=== PATIENT | male | born 1945 | race Caucasian/White ===

== ENCOUNTER 2019-09-30 13:09 | Inpatient (IN) | payer MEDICARE, SELFPAY ==
[2019-09-30] VITALS (29 sets, daily range): BP systolic 123–165; BP diastolic 53–81; PULSE 75–134; RESP 16–32; TEMP 36.7–37.3; O2SAT 85–100; BMI 26.6
--- NOTE | 2019-09-30 13:12 | XRR_ITS ---
PROCEDURE INFORMATION: Exam: XR Chest, 1 View Exam date and time: 09/30/2019 1:49 PM Age: 74 years old Clinical indication: Dyspnea TECHNIQUE: Imaging protocol: XR of the chest Views: 1 view. COMPARISON: CR Chest 1 [place] [id number] 08/07/2018 12:22 AM FINDINGS: Lungs: Emphysematous change and interstitial prominence. Near complete interval resolution of previously visualized left basilar airspace disease, with small residual left pleural effusion. Heart/Mediastinum: Cardiac silhouette upper limits of normal in size. Vasculature: Calcification of the thoracic aorta. Bones/joints: Degenerative change. XR/XR chest 1V portable [id number] IMPRESSION: 1. Emphysematous change and interstitial prominence. 2. Near complete interval resolution of previously visualized left basilar airspace disease, with small residual left pleural effusion.
--- NOTE | 2019-09-30 13:13 | ECG_ITS ---
Measurements Intervals [place] Rate: 133 P: 78 AK: 139 QRS: -47 QRSD: 78 T: 64 QT: 305 QTc: 454 SINUS TACHYCARDIA LEFT ANTERIOR FASCICULAR BLOCK [QRS AXIS <= -45, QR IN I, RS IN II] NONSPECIFIC T-WAVE ABNORMALITY Compared to ECG 08/07/2018 00:32:35 Left anterior fascicular block now present T-wave abnormality now present Electronically Signed On 10-01-2019 19:58:35 CDT by Pauline Ashley M.D. [id number]
--- NOTE | 2019-09-30 13:15 | W.ED.SOB ---
HPI - SOB/Dyspnea General: Chief Complaint: Shortness of Breath/Dyspnea Stated Complaint: SOB Time Seen by Provider: 09/30/19 13:12 History of Present Illness: HPI Narrative: Patient reports she's been increasingly short of breath for the past 2 days. There is no relief from home O2 or home nebulizers. MD elicited complaint: shortness of breath Pertinent past history: COPD Onset (ago): day(s) Severity: severe Exacerbating factors: lying flat and exertion Relieving factors: nothing Known history of: COPD Review of Systems General: Reports: 10 or more systems reviewed and unremarkable except in HPI and below Resp: Reports: dyspnea and wheezing [facility] ED PFSH: Social History Smoking and tobacco status: current some day smoker Physical Exam Const: COMMON NORMALS: alert GENERAL APPEARANCE: in distress and ill appearing Neck/C-Spine: GENERAL: Yes JVD Resp: EFFORT & INSPECTION: Yes labored, Yes uses accessory muscles, Yes paradoxical thoraco-abdominal movements and Yes audible wheezes Cardio: RATE: tachycardic Extremity: COMMON NORMALS: full ROM and no pedal edema Neuro: SENSORIUM/ORIENTATION: Yes alert Course Vital Signs: Vital signs: Vital Signs Temperature 99.1 F 09/30/19 13:15 Pulse Rate 130 H 09/30/19 13:37 Respiratory Rate 24 H 09/30/19 13:15 Blood Pressure 142/64 09/30/19 13:15 Pulse Oximetry 97 09/30/19 13:37 MDM - SOB/Dyspnea Lab Data: Labs: Lab Results 09/30/19 09/30/19 09/30/19 Range/Units 12:13 12:30 12:30 WBC 10.3 H (4.0-10.0) 10^3/ uL RBC 3.78 L (4.1-5.3) 10^6/u L Hgb 10.4 L (11.7-16.6) g/dL Hct 35.3 L (42.0-52.0) % MCV 93.4 (80-94) fL MCH 27.5 L (28.0-34.0) pg MCHC 29.5 L (30.0-36.0) g/dL RDW 13.1 (12.1-15.1) % Plt Count 472 H (130-400) 10^3/c mm MPV 9.6 (7.4-10.4) fL Neut % (Auto) 80.3 % Lymph % (Auto) 9.0 % [place] % (Auto) 9.7 % Eos % (Auto) 0.1 % Baso % (Auto) 0.3 % Neut # (Auto) 8.3 H (1.8-7.7) 10^3/u L Lymph # (Auto) 0.9 (0.8-4.8) 10^3/u L [place] # (Auto) 1.0 H (0.2-0.9) 10^3/u L Eos # (Auto) 0.0 (0.0-0.8) 10^3/u L Baso # (Auto) 0.0 (0.0-0.1) 10^3/u L Nucleated RBC % (a uto) 0 % Nucleated RBCs # 0.0 /100WBC Specimen Type Arterial Sample Site Radial, left ABG pH 7.42 (7.35-7.45) ABG pCO2 49.0 H (35-45) mmHg ABG pO2 78.3 L (80.0-100.0) mmH g ABG HCO3 31.7 H (22-26) mmol/L ABG Base Excess 6.4 H (-2.0-2.0) mmol/ L Bhavik Test Pos Hematocrit 30.5 L (42-52) % O2 Delivery Device Bipap FiO2 28.0 % Quarry Equipment Operator ID [id number] Sodium 142 (136-145) mmol/L Potassium 4.4 (3.5-5.1) mmol/L Chloride 98 (98-107) mmol/L Carbon Dioxide 34 H (22-29) mmol/L Anion Gap 14.4 (5-19) BUN 16 (8-23) mg/dL Creatinine 1.2 (0.7-1.2) mg/dL Glucose 110 (65-115) mg/dL Calculated Osmolal ity 291 (285-295) mOsm/k g Lactic Acid (0.5-2.2) mmol/L Calcium 9.4 (8.5-10.5) mg/dL Total Bilirubin 0.2 (0.15-1.2) mg/dL AST 26 (0-40) U/L ALT 28 (0-41) U/L Alkaline Phosphata se 131 H (40-130) IU/L Troponin T Baselin e (0-15) ng/mL NT-Pro-B Natriuret Pep 716 H (0-450) pg/mL Total Protein 7.1 (6.6-8.7) g/dL Albumin 4.1 (3.5-5.2) g/dL Globulin 3.0 (1.3-4.6) g/dL Influenza Type A A g (Negative) Influenza Type B A g (Negative) 09/30/19 09/30/19 09/30/19 Range/Units 12:30 13:20 13:24 WBC (4.0-10.0) 10^3/ uL RBC (4.1-5.3) 10^6/u L Hgb (11.7-16.6) g/dL Hct (42.0-52.0) % MCV (80-94) fL MCH (28.0-34.0) pg MCHC (30.0-36.0) g/dL RDW (12.1-15.1) % Plt Count (130-400) 10^3/c mm MPV (7.4-10.4) fL Neut % (Auto) % Lymph % (Auto) % [place] % (Auto) % Eos % (Auto) % Baso % (Auto) % Neut # (Auto) (1.8-7.7) 10^3/u L Lymph # (Auto) (0.8-4.8) 10^3/u L [place] # (Auto) (0.2-0.9) 10^3/u L Eos # (Auto) (0.0-0.8) 10^3/u L Baso # (Auto) (0.0-0.1) 10^3/u L Nucleated RBC % (a uto) % Nucleated RBCs # /100WBC Specimen Type Sample Site ABG pH (7.35-7.45) ABG pCO2 (35-45) mmHg ABG pO2 (80.0-100.0) mmH g ABG HCO3 (22-26) mmol/L ABG Base Excess (-2.0-2.0) mmol/ L Bhavik Test Hematocrit (42-52) % O2 Delivery Device FiO2 % Quarry Equipment Operator ID Sodium (136-145) mmol/L Potassium (3.5-5.1) mmol/L Chloride (98-107) mmol/L Carbon Dioxide (22-29) mmol/L Anion Gap (5-19) BUN (8-23) mg/dL Creatinine (0.7-1.2) mg/dL Glucose (65-115) mg/dL Calculated Osmolal ity (285-295) mOsm/k g Lactic Acid 2.2 (0.5-2.2) mmol/L Calcium (8.5-10.5) mg/dL Total Bilirubin (0.15-1.2) mg/dL AST (0-40) U/L ALT (0-41) U/L Alkaline Phosphata se (40-130) IU/L Troponin T Baselin e 76 H (0-15) ng/mL NT-Pro-B Natriuret Pep (0-450) pg/mL Total Protein (6.6-8.7) g/dL Albumin (3.5-5.2) g/dL Globulin (1.3-4.6) g/dL Influenza Type A A g Negative (Negative) Influenza Type B A g Negative (Negative) Discharge Plan Discharge Patient Disposition: Admitted As Inpatient Clinical Impression: Acute exacerbation of chronic obstructive airways disease, Acute respiratory distress Condition: Fair Coding Level of Care Code ED Tapper Balance Wheel Screw Hole for Chg Fwd Exam Detailed
[2019-09-30 13:23] LABS: Basophils % 0.3 %; Eosinophils % 0.1 %; Hematocrit 35.3 % (42.0-52.0); Hemoglobin 10.4 g/dL (11.7-16.6); Lymphocytes # 0.9 10^3/uL (0.8-4.8); Mean Corpuscular HGB Conc 29.5 g/dL (30.0-36.0); Mean Corpuscular Hemoglobin 27.5 pg (28.0-34.0); Mean Corpuscular Volume 93.4 fL (80-94); Mean Platelet Volume 9.6 fL (7.4-10.4); Monocytes % 9.7 %; Neutrophils # 8.3 10^3/uL (1.8-7.7); Neutrophils % 80.3 %; Nucleated Red Blood Cells % 0 %; Platelet Count 472 10^3/cmm (130-400); Red Blood Count 3.78 10^6/uL (4.1-5.3); Red Cell Distribution Width 13.1 % (12.1-15.1); White Blood Count 10.3 10^3/uL (4.0-10.0)
[2019-09-30] MEDS: sodium chloride 0.9% 500 ML 999 ML IV (13:40)
--- NOTE | 2019-09-30 13:43 | PC.RESP ---
Patient arrived to ED on EMS CPAP. Placed patient on bipap upon arrival. Dr. Rivas in room and aware.
[2019-09-30 13:50] LABS: Lactic Sepsis W/Reflex 2.2 mmol/L (0.5-2.2)
[2019-09-30 13:53] LABS: Troponin(5th) Baseline 76 ng/mL (0-15)
[2019-09-30 14:02] LABS: Alanine Aminotransferase 28 U/L (0-41); Albumin Level 4.1 g/dL (3.5-5.2); Alkaline Phosphatase 131 IU/L (40-130); Anion Gap 14.4 (5-19); Aspartate Amino Transferase 26 U/L (0-40); Blood Urea Nitrogen 16 mg/dL (8-23); Calcium 9.4 mg/dL (8.5-10.5); Carbon Dioxide 34 mmol/L (22-29); Chloride 98 mmol/L (98-107); Creatinine Clr Calc Pharmacy 53.9197; Glucose 110 mg/dL (65-115); NT Pro B Type Natriuretic Pept 716 pg/mL (0-450); Osmolality Calculated 291 mOsm/kg (285-295); Potassium 4.4 mmol/L (3.5-5.1); Sodium 142 mmol/L (136-145); Total Bilirubin 0.2 mg/dL (0.15-1.2); Total Protein 7.1 g/dL (6.6-8.7)
[2019-09-30 14:20] LABS: Influenza A by IFA Negative (Negative); Influenza B by IFA Negative (Negative)
[2019-09-30 14:25] LABS: ABG PH Result 7.42 (7.35-7.45); Arterial Blood Gas Hematocrit 30.5 % (42-52); Base Excess ABG 6.4 mmol/L (-2.0-2.0); Blood Gas Allen Test Pos; Blood Gas Sample Site Radial, left; Blood Gas Sample Type Arterial; HCO3 ABG 31.7 mmol/L (22-26); Oxygen Device BIPAP; PO2 ABG 78.3 mmHg (80.0-100.0)
--- NOTE | 2019-09-30 15:13 | ECG_ITS ---
Measurements Intervals [place] Rate: 110 P: 69 IA: 145 QRS: -26 QRSD: 91 T: 33 QT: 353 QTc: 478 SINUS TACHYCARDIA BORDERLINE LEFT AXIS DEVIATION [QRS AXIS < -20] Compared to ECG 08/07/2018 00:32:35 No significant changes Electronically Signed On 10-01-2019 20:25:47 CDT by Pauline Ashley M.D. [id number]
[2019-09-30 15:15] LABS: Reflex Lactate Order REFLEX LACTIC ORDERD
--- NOTE | 2019-09-30 15:17 | P.HP_ITS ---
Providers/Chief Complaint Chief Complaint: SOB History of Present Illness Abundio Reyes is a 74 year old male that presents to the emergency department with gradual increasing shortness of breath over the last 3 days or so. He denies any fever. He has had a cough. He denies any hemoptysis. He reports he has underlying COPD and normally is on about 4 L of oxygen per nasal cannula. H e reports he feels much better on the BiPAP, and wishes he had one at home. He denies any chest pain, any discomfort with inspiration, any leg pain. He denies any exposure to anybody with COVID. He has had no recent travel. Review of Systems General: Reports: 10 or more systems reviewed and unremarkable except in HPI and below Const: Denies: fever(s) or chills Eyes: Denies: change in vision ENMT: Denies: throat pain Card: Reports: dyspnea on exertion; Denies: chest pain Resp: Reports: dyspnea and non-productive cough GI: Denies: abdominal pain : Denies: flank pain Musc: Denies: neck pain Skin/Breast: Denies: rash Neuro: Denies: headache(s) Psych: Reports: anxiety Endo: Denies: polyuria Aamir/Lymph: Denies: easy bruising All/Imm: Denies: urticaria Medications/Allergies Home Medications Medication Instructions Recorded Confirmed Last Taken Type alprazolam 0.5 mg PO Q4H PRN 09/30/19 09/30/19 Unknown History citalopram 10 mg PO DAILY 09/30/19 09/30/19 Unknown History docusate sodium [DOK] 100 mg PO BID 09/30/19 09/30/19 Unknown History gabapentin See Rx Instructions .ROUTE .COMPLEX 09/30/19 09/30/19 Unknown History guaifenesin [Mucinex] 600 mg PO BID 09/30/19 09/30/19 Unknown History ipratropium-albuterol 3 ml INHALATION TID 09/30/19 09/30/19 Unknown History meloxicam 15 mg PO DAILY PRN 09/30/19 09/30/19 Unknown History Allergies Allergy/AdvReac Type Severity Reaction Status Date / Time No Known Allergies Allergy Verified 09/30/19 13:17 PFSH Acute PFSH: Medical History (Updated 09/30/19 @ 15:32 by Jignesh Valadez MD) Anemia Anxiety BPH (benign prostatic hyperplasia) Chronic pain COPD (chronic obstructive pulmonary disease) DJD (degenerative joint disease) GERD (gastroesophageal reflux disease) Hypertension Urinary retention Family History (Updated 09/30/19 @ 15:20 by Jignesh Valadez MD) Other Cancer Social History (Updated 09/30/19 @ 15:20 by Jignesh Valadez MD) Smoking and tobacco status: current some day smoker Alcohol intake: never Substance/Drug Use: never Vitals/I&O/Wt Last Vital Signs Temp 99.1 F 09/30/19 13:15 Pulse 130 H 09/30/19 13:37 Resp 24 H 09/30/19 13:15 BP 142/64 09/30/19 13:15 Pulse Ox 97 09/30/19 13:37 Weight last 48 hrs Weight 79.379 kg Physical Exam Narrative: EXAM NARRATIVE: General exam demonstrates an elderly white male, pleasant and conversant HEENT: BiPAP is noted. Head is atraumatic. Pupils equally round. Neck is supple no lymphadenopathy or thyromegaly Cardiovascular slight tachycardia, no murmur Lungs no wheezes heard. Diminished breath sounds are noted bilaterally. Abdomen is soft with positive bowel sounds, no obvious organomegaly. Cruz is noted Extremities no cyanosis clubbing or edema, cap refill brisk Skin no rash Neuro no focal deficits Data : 09/30/19 12:30 09/30/19 12:30 Micro: Microbiology 09/30/19 13:25 Blood Culture - Preliminary Blood SPECIMEN COLLECTED 09/30/19 13:24 Blood Culture - Preliminary Blood SPECIMEN COLLECTED Other data: EKG demonstrates sinus tachycardia, left axis deviation, quite a bit of pulmonary artifact Chest x-ray demonstrates blunting left costophrenic angle which appears old. COPD, calcific aorta ABG demonstrated a pH of 7.42, PCO2 49, PO2 78 LFTs are largely normal BNP 716 Troponin baseline 76 Influenza swabs negative Urinalysis pending A&P Assessment and plan (1) Acute exacerbation of chronic obstructive airways disease: BiPAP started in the emergency department. Discontinue if able IV steroids given in the emergency department. At this point will transition to prednisone 40 mg a day to try to limit dose. Doubt COVID positive but hopefully will not need continued IV steroids. COVID testing performed and pending Doxycycline 100 mg twice daily Combivent 1 puff every 4 hours scheduled. Nebulized for breakthrough but will try to limit secondary to COVID testing Status: Acute (2) Respiratory failure: Hypercarbic Has element of chronic hypercarbic respiratory failure as well. Patient asking if he qualifies for BiPAP. This will need to be explored tomorrow. Status: Acute (3) Anemia: Anemia panel, fecal occult blood Placed on Protonix Status: Acute Additional A&P Information Elevated troponin, suspect type II Elevated BNP, no clinical evidence on exam of heart failure History of anxiety/depression, continue Celexa History of hypertension History of GERD. Start Protonix DJD Chronic pain BPH and according to the patient an indwelling Cruz for the last 5 to 6 months. Check urinalysis. Lovenox for DVT prophylaxis Full code Attestations Medical Necessity Statement*: Will need greater than 2 midnight stay for treatment and evaluation of COPD exacerbation requiring BiPAP. Time Spent in Patient Care: Greater than 35 minutes Coding Level of Care Code Acute Branch Credit Counselor for [facility] [place] Diagnoses Acute exacerbation of chronic obstructive airways disease J44.1 Respiratory failure J96.90 Anemia D64.9
[2019-09-30 15:24] LABS: Troponin 5 2HR 66.42 ng/mL (0-15)
[2019-09-30 15:28] LABS: Glucose Urine UA Norm (Normal); Ketones Urine Negative (Negative); Protein Urine Neg (Negative); Specific Gravity, Urine 1.005 (1.005-1.030); Urine Appearance Clear (CLEAR); Urine Color Yellow (Yellow); pH Urine 5 (5-7)
[2019-09-30 15:29] LABS: Bilirubin Urine Neg (NEGATIVE); Blood Urine 2+ (Negative); Leukocyte Esterase Urine Negative (Negative); Nitrate Urine Positive (Negative); Urobilinogen Urine Norm (Negative)
[2019-09-30 15:36] LABS: Bacteria Urine 2+; Mucus Urine 1+; RBC Urine 0-4 /hpf (0-2); Squamous Epithelial Cell Urine 0-4 (0-5); WBC Urine 0-4 /hpf (0-5)
[2019-09-30 15:37] LABS: Add Urine Culture? Yes
[2019-09-30 15:48] LABS: Lactic Acid level (Lactate) 1.9 mmol/L (0.5-2.2)
[2019-09-30 18:46] LABS: Ferritin 663 ng/mL (30-400); Iron 18 ug/dL (59-158); Percent Saturation 8.7 % (20-50); Total Iron Binding Capacity 206 mcg/dl; Unsaturated Iron Binding 188 ug/dL (112-347); Vitamin B12 238 pg/mL (232-1245)
[2019-09-30 18:48] LABS: Folate Level 4.2 ng/mL (4.5-32.2)
--- NOTE | 2019-09-30 19:13 | ECG_ITS ---
Measurements Intervals [place] Rate: 77 P: 72 MD: 155 QRS: -21 QRSD: 90 T: 16 QT: 402 QTc: 458 SINUS RHYTHM BORDERLINE LEFT AXIS DEVIATION [QRS AXIS < -20] Compared to ECG 08/07/2018 00:32:35 Sinus tachycardia no longer present Electronically Signed On 10-01-2019 20:18:29 CDT by Pauline Ashley M.D. [id number]
[2019-09-30] MEDS: TRAMadol 50 mg Tablet PO ×2 (19:39→21:35)
[2019-09-30] MEDS: enoxaparin 40 mg/0.4 mL Syringe SUBCUT (19:39)
[2019-09-30] MEDS: doxycycline 100 mg Tablet PO (19:39)
[2019-09-30] MEDS: ALPRAZolam 0.5 mg Tablet PO (19:40)
[2019-09-30] MEDS: gabapentin 300 mg Capsule PO (19:40)
[2019-09-30] MEDS: acetaminophen 325 mg Tablet 650 MG PO (19:40)
[2019-09-30] MEDS: morphine 4 mg/mL SDV 1 mL 2 MG IVP (20:10)
--- NOTE | 2019-09-30 21:01 | PC.NURSE ---
Pt continues to c/o pain in his legs and back. Dr Resendiz has been contacted twice via telephone at approx. 1915 and again at 2014. Pt was given previously ordered xanax (home med), gabapentin (home med), and tylenol. After the first phone call, pt was also given tramadol (50 mg, pt states he takes this at home, but it is not in his home med list). After second call, pt was given 2 mg IVP morphine. Pt states he needs more tramadol. Pt is diaphoretic and not able to sit still because of pain and not being able to breathe . RT was consulted and pt was given inhaled medicines as well as put on bipap. Pt requested nurse myles Resendiz again and ask for more tramadol or more pain medicine.
[2019-10-01] VITALS (39 sets, daily range): BP systolic 104–143; BP diastolic 43–80; PULSE 70–106; RESP 13–29; TEMP 36.4–37; O2SAT 90–100
[2019-10-01] MEDS: TRAMadol 50 mg Tablet PO ×3 (03:47→14:31)
[2019-10-01 05:05] LABS: Hematocrit 30.8 % (42.0-52.0); Hemoglobin 9.1 g/dL (11.7-16.6); Lymphocytes # 0.3 10^3/uL (0.8-4.8); Lymphocytes % 4.5 %; Mean Corpuscular HGB Conc 29.5 g/dL (30.0-36.0); Mean Corpuscular Hemoglobin 27.1 pg (28.0-34.0); Mean Corpuscular Volume 91.7 fL (80-94); Mean Platelet Volume 9.9 fL (7.4-10.4); Monocytes # 0.3 10^3/uL (0.2-0.9); Monocytes % 3.8 %; Neutrophils # 6.6 10^3/uL (1.8-7.7); Neutrophils % 91.3 %; Nucleated Red Blood Cells % 0 %; Platelet Count 360 10^3/cmm (130-400); Red Blood Count 3.36 10^6/uL (4.1-5.3); White Blood Count 7.3 10^3/uL (4.0-10.0)
[2019-10-01 05:27] LABS: Anion Gap 16.2 (5-19); Blood Urea Nitrogen 25 mg/dL (8-23); Calcium 10.1 mg/dL (8.5-10.5); Carbon Dioxide 30 mmol/L (22-29); Chloride 101 mmol/L (98-107); Glucose 136 mg/dL (65-115); Osmolality Calculated 295 mOsm/kg (285-295); Potassium 4.2 mmol/L (3.5-5.1); Sodium 143 mmol/L (136-145)
[2019-10-01] MEDS: gabapentin 300 mg Capsule PO ×2 (08:07→17:44)
[2019-10-01] MEDS: doxycycline 100 mg Tablet PO ×2 (08:07→17:44)
[2019-10-01] MEDS: predniSONE 20 mg Tablet 40 MG PO (08:07)
[2019-10-01] MEDS: ALPRAZolam 0.5 mg Tablet PO ×2 (08:07→14:31)
[2019-10-01] MEDS: citalopram 20 mg Tablet 10 MG PO (08:08)
[2019-10-01] MEDS: pantoprazole DR 40 mg Tablet PO (08:08)
[2019-10-01] MEDS: acetaminophen 325 mg Tablet 650 MG PO (08:08)
--- NOTE | 2019-10-01 10:58 | P.PN_ITS ---
Subjective Subjective: Interval history: He reports that he is feeling significantly better compared to admission. He reports that at home he uses 3-1/2-4 L of oxygen by nasal cannula continuously. He says that he has nebulizer at home has not been working. Vitals/I&O/Wt Last Vital Signs Temp 98.0 F 09/30/19 18:00 Pulse 98 10/01/19 08:18 Resp 22 H 10/01/19 08:14 BP 118/62 10/01/19 06:00 Pulse Ox 95 10/01/19 08:14 09/30/19 10/01/19 10/01/19 22:59 06:59 14:59 Intake Total 500 / 500 200 / 700 Output Total 450 / 450 800 / 1250 Balance 50 / 50 -600 / -550 Weight last 48 hrs Weight 79.379 kg Physical Exam Const: COMMON NORMALS: no acute distress and patient oriented x3 HENMT: COMMON NORMALS: oropharynx normal Neck/C-Spine: COMMON NORMALS: no JVD Resp: COMMON NORMALS: normal respiratory effort AUSCULTATION: wheezes throughout Cardio: COMMON NORMALS: no JVD, regular rhythm, S1 normal heart sound present, S2 normal heart sound present and No murmurs present (Cardio) RHYTHM: regular rhythm HEART SOUNDS: S1 normal heart sound present and S2 normal heart sound present GI: COMMON NORMALS: Normal to inspection, nondistended, normoactive bowel sounds present, Soft to palpation and non-tender PALPATION: Yes Soft to palpation Extremity: COMMON NORMALS: no joint enlargement and no pedal edema OTHER: Having some tremor in his bilateral lower extremities, intermittent jerky movements which he states are chronic with his restless leg syndrome. Neuro: COMMON NORMALS: patient oriented x3 and moves all extremities Skin: COMMON NORMALS: no rashes or lesions noted GENERAL SKIN EXAM: no rashes or lesions noted Data : 10/01/19 04:40 10/01/19 04:40 Micro: Microbiology 09/30/19 13:25 Blood Culture - Preliminary Blood SPECIMEN COLLECTED 09/30/19 13:24 Blood Culture - Preliminary Blood SPECIMEN COLLECTED A&P Assessment and plan (1) Respiratory failure: He is overall improving, feeling better subjectively, although still has bilateral wheezing on exam. Yesterday was switched over to prednisone. For now since he is feeling better we will continue. Appears to be approaching his home oxygen requirement which she states is 3.5-4 L by nasal cannula. COVID-19 results pending. Status: Acute (2) Acute exacerbation of chronic obstructive airways disease: As above. Continue breathing treatments. Pulmonary toilet. Appreciate discharge planning assistance with arrangements for service or replacement of his nebulizer. Status: Acute Additional A&P Information Restless leg syndrome: It is not entirely clear what he takes. He states that he takes as of tramadol 50 mg twice a day, although last recorded prescription o n contact with pharmacy is reported to have been back in July 2018. His nurse will try to reach out to PCP office to see what they have on record there. Anemia: Pending fecal occult blood test. Continue Protonix. Elevated troponin: Suspected type II AR, demand ischemia Elevated BNP: Does not appear to be in failure History anxiety/depression, continue Celexa History of HTN History of GERD DJD Chronic pain BPH: Reportedly chronic Cruz catheter over the last 5-6 months. UA not suggestive of UTI. Attestations Medical Necessity Statement*: Continue admission for assessment management of COPD exacerbation. Coding Level of Care Code Acute Residence Life Coordinator for [facility] Diagnoses Respiratory failure J96.90 Acute exacerbation of chronic obstructive airways disease J44.1
--- NOTE | 2019-10-01 12:01 | PC.NURSE ---
PATIENT HAD A ROUGH NIGHT HIS LEGS TWITCH AND VIBRATE NEARLY CONSTANTLY. HE STATES HE TAKES TRAMADOL 100MG AT LEAST 2X A DAY WITH AN EXTRA DOSE OF 50 TO 100 IF NEEDED. HE CLAIMS ITS THE ONLY THING THAT HELPS THE SHAKE. INCLUDING REQUIP, OXY, AND ZANAX. I CALLED [facility] AND HIS LAST REFILL WAS FROM 2019 THROUGH AN EMERGENCY ROOM ORDER. DR VELASCO PRESCRIBED MANY MEDS BUT HE IS NOT HIS PCP DR LIVINGSTON IS AND I AM AWAITING A MED LIST FROM THEM. MELOXICAM 15 MGIS ON A RECENT REFILL IS MUCINEX, GABAPENTIN 300 BID, INHALERS , CITALOPRAM 10MG, AND ZANAX .5 Q4HRS PRN.
--- NOTE | 2019-10-01 14:25 | PC.NURSE ---
dr enciso's office contacted to fax his med list to the [facility]. no fax has arrived in 2 hrs. patient has been resting well. covid negative.
--- NOTE | 2019-10-01 14:45 | PC.NURSE ---
THIS PATIENT CARES FOR HIS WHEELCHAIR BOUND WITH MS. HE WAS HAVING TROUBLE VOIDING SOME MONTHS AGO AND ENDED UP WITH A CHRONIC CARTER. HE SAID HE JUST WANTED TO BE PUT ON FLOMAX BUT DUE TO COVID HE DID NOT GET HIS SCOPE OR FLOMAX PERSCRIPTION THEY JUST SENT THE HOME HEALTH NURSES TO PUT IN HIS CARTER AND CHANGE IT OUT MONTHLY. PATIENT CLAIMS HIS HOME NEBULIZER IS NOT WORKING PROPERLY , HE HAS HAD IT FOR 6 YRS. IT NEEDS TO BE REPLACED PROBABLY, IT MAY EVEN BE CLOGGED AND UNSTERILE. THE DR SAID HE WOULD ARRANGE FOR IT TO BE LOOKED INTO.
[2019-10-01] MEDS: enoxaparin 40 mg/0.4 mL Syringe SUBCUT (17:44)
[2019-10-02] VITALS (24 sets, daily range): BP systolic 115–147; BP diastolic 52–69; PULSE 61–102; RESP 14–24; TEMP 36.4–36.6; O2SAT 95–100
[2019-10-02 05:37] LABS: Basophils % 0.1 %; Eosinophils % 0.1 %; Hematocrit 33.7 % (42.0-52.0); Hemoglobin 9.9 g/dL (11.7-16.6); Lymphocytes # 0.7 10^3/uL (0.8-4.8); Lymphocytes % 7.8 %; Mean Corpuscular HGB Conc 29.4 g/dL (30.0-36.0); Mean Corpuscular Volume 91.8 fL (80-94); Mean Platelet Volume 9.6 fL (7.4-10.4); Monocytes # 0.6 10^3/uL (0.2-0.9); Monocytes % 6.2 %; Neutrophils # 7.9 10^3/uL (1.8-7.7); Neutrophils % 84.8 %; Nucleated Red Blood Cells % 0 %; Platelet Count 392 10^3/cmm (130-400); Red Blood Count 3.67 10^6/uL (4.1-5.3); White Blood Count 9.3 10^3/uL (4.0-10.0)
[2019-10-02 05:55] LABS: Anion Gap 12.4 (5-19); Blood Urea Nitrogen 32 mg/dL (8-23); Carbon Dioxide 32 mmol/L (22-29); Chloride 100 mmol/L (98-107); Glucose 99 mg/dL (65-115); Osmolality Calculated 287 mOsm/kg (285-295); Potassium 4.4 mmol/L (3.5-5.1); Sodium 140 mmol/L (136-145)
[2019-10-02] MEDS: doxycycline 100 mg Tablet PO ×2 (09:00→18:07)
[2019-10-02] MEDS: predniSONE 20 mg Tablet 40 MG PO (09:00)
[2019-10-02] MEDS: pantoprazole DR 40 mg Tablet PO (09:00)
[2019-10-02] MEDS: citalopram 20 mg Tablet 10 MG PO (09:00)
[2019-10-02] MEDS: gabapentin 300 mg Capsule PO ×2 (09:00→18:07)
--- NOTE | 2019-10-02 11:30 | CTR_ITS ---
PROCEDURE INFORMATION: Exam: CT Abdomen And Pelvis With Contrast Exam date and time: 10/02/2019 12:31 PM Age: 74 years old Clinical indication: Other: Gluteal lesion; Abdominal pain TECHNIQUE: Imaging protocol: Computed tomography of the abdomen and pelvis with intravenous contrast. Radiation optimization: All CT scans at this facility use at least one of these dose optimization techniques: automated exposure control; mA and/or kV adjustment per patient size (includes targeted exams where dose is matched to clinical indication); or iterative reconstruction. Contrast material: OMNI 300; Contrast volume: 95 ml; Contrast route: IV; Other contrast: Oral, 25; COMPARISON: CT Chest/Abdomen/Pelvis w IV* 04/01/2018 8:11 AM RADIATION DOSE METRICS: Total DLP: 641.42 mGy-cm FINDINGS: Lungs: There is left lower lobe endobronchial opacification. Liver: Normal. No mass. Gallbladder and bile ducts: Gallstones are identified although there are no CT findings to suggest cholecystitis. No ductal dilation. Pancreas: Normal. No ductal dilation. Spleen: Normal. No splenomegaly. Adrenals: Normal. No mass. Kidneys and ureters: There are bilateral benign renal cysts. This includes a 2.8 cm mid posterior right cyst. No renal calcification or hydronephrosis. Stomach and bowel: Colonic diverticula are present although there are no CT findings to suggest diverticulitis. No bowel obstruction or wall thickening. Appendix: The appendix is visualized and appears normal. Intraperitoneal space: Unremarkable. No free air. No significant fluid collection. Vasculature: Unremarkable. No abdominal aortic aneurysm. Lymph nodes: Unremarkable. No enlarged lymph nodes. Bladder: There is a Cruz catheter in a decompressed bladder. Reproductive: Unremarkable as visualized. Bones/joints: Unremarkable. No acute fracture. Soft tissues: There is fat in the left inguinal canal. CT/CT abdomen pelvis w con* [id number] IMPRESSION: There are no acute concerning abnormalities. There are bilateral benign renal cysts. No follow-up imaging is recommended. Radiation Dose CTDIVOL = (mGy): DLP = 641.42 (mGy-cm)
[2019-10-02] MEDS: iohexol 300 mg/mL 50 mL Btl PO (12:32)
--- NOTE | 2019-10-02 14:10 | PM.CONSULT ---
Providers/Reason For Consult Consulting Physican/Specialty*: Dominic Palomares MD Reason for Consult*: Right perianal wound Attending Physician: Chalino Almendarez History of Present Illness History of Present Illness Chief Complaint: There is a spot on the bottom History of present illness: Abundio Reyes is a 74 year old male admitted on the hospitalist service for acute exacerbation of COPD and was supposed to be discharged home today and the nurse noticed some discharge on the bed sheets and she reported this to Dr. Almendarez that evaluated the patient and there was a concern about a right perianal ulcer and according to the patient has been going on for many years as he had a trauma about 40 years ago and ever since has been having this issue. Not clear if the patient had ever had a colonoscopy before At this point he denies any fevers chills nausea or vomiting and he reports that this issue has been going on for quite some Review of Systems General: Reports: 10 or more systems reviewed and unremarkable except in HPI and below Meds/Allergies Home Medications and Allergies Home Medications Medication Instructions Recorded Confirmed Last Taken Type alprazolam 0.5 mg PO Q4H PRN 09/30/19 09/30/19 Unknown History citalopram 10 mg PO DAILY 09/30/19 09/30/19 Unknown History docusate sodium [DOK] 100 mg PO BID 09/30/19 09/30/19 Unknown History guaifenesin [Mucinex] 600 mg PO BID 09/30/19 09/30/19 Unknown History ipratropium-albuterol 3 ml INHALATION TID 09/30/19 09/30/19 Unknown History meloxicam 15 mg PO DAILY PRN 09/30/19 09/30/19 Unknown History Mucinex 600 mg PO BID 10/01/19 10/01/19 Unknown History gabapentin 300 mg PO BID 10/01/19 10/01/19 Unknown History tramadol 50 mg PO Q4-5H PRN 10/01/19 10/01/19 Unknown History doxycycline monohydrate 100 mg PO BID 7 Days #14 tab 10/03/19 Unknown Rx ipratropium-albuterol [Combivent 1 puff INHALATION Q6H PRN #4 gm 10/03/19 Unknown Rx Respimat] pantoprazole 40 mg PO DAILY #30 tab 10/03/19 Unknown Rx prednisone 40 mg PO DAILY #21 tab 10/03/19 Unknown Rx tamsulosin [Flomax] 0.4 mg PO DAILY #30 cap 10/03/19 Unknown Rx Allergies Allergy/AdvReac Type Severity Reaction Status Date / Time No Known Allergies Allergy Verified 10/02/19 15:11 Current Medications Current Medications Generic Name Dose Route Start Last Admin Trade Name Freq PRN Reason Stop Dose Admin Acetaminophen 650 mg 09/30/19 14:53 10/01/19 08:08 Tylenol PO 650 mg Q6H PRN Administration Mild/Mod Pain Or Temp >/= 101 Albuterol/Ipratropium 1 puff 09/30/19 20:00 10/02/19 12:41 Combivent Respimat INHALATION 1 puff Q4H.RESPIRATORY KALEY Administration Alprazolam 0.5 mg 09/30/19 17:49 10/01/19 14:31 Xanax PO 0.5 mg Q4H PRN Administration Anxiety Citalopram Hydrobromide 10 mg 10/01/19 09:00 10/02/19 09:00 Celexa PO 10 mg DAILY KALEY Administration Doxycycline Monohydrate 100 mg 09/30/19 18:00 10/02/19 09:00 Vibramycin PO 100 mg BID KALEY Administration Protocol Enoxaparin Sodium 40 mg 09/30/19 18:30 10/01/19 17:44 Lovenox SUBCUT 40 mg Q24H KALEY Administration Gabapentin 300 mg 09/30/19 18:00 10/02/19 09:00 Neurontin PO 300 mg BID KALEY Administration Pantoprazole Sodium 40 mg 10/01/19 09:00 10/02/19 09:00 Protonix PO 40 mg DAILY KALEY Administration Prednisone 40 mg 10/01/19 09:00 10/02/19 09:00 Prednisone PO 40 mg DAILY KALEY Administration Fluticasone/Salmeterol 1 puff 10/01/19 08:30 10/02/19 09:37 Advair Diskus 250-50 INHALATION 1 puff BID.RESPIRATORY KALEY Administration Tramadol HCl 50 mg 09/30/19 19:31 10/01/19 14:31 Ultram PO 50 mg Q6H PRN Administration MODERATE PAIN PFSH Acute PFSH: Medical History (Updated 10/04/19 @ 00:00 by ) Anemia Anxiety BPH (benign prostatic hyperplasia) Chronic pain COPD (chronic obstructive pulmonary disease) DJD (degenerative joint disease) GERD (gastroesophageal reflux disease) Hypertension Urinary retention Family History Other Cancer Social History Smoking and tobacco status: current some day smoker Alcohol intake: never Vitals/I&O/Wt Last Vital Signs Temp 97.6 F 10/02/19 10:41 Pulse 102 H 10/02/19 12:43 Resp 18 10/02/19 12:42 BP 123/66 10/02/19 10:00 Pulse Ox 95 10/02/19 12:42 10/01/19 10/02/19 10/02/19 22:59 06:59 14:59 Intake Total 600 / 1150 360 / 360 Output Total 300 / 500 600 / 1100 Balance 300 / 650 -600 / 50 360 / 360 Physical Exam Narrative: EXAM NARRATIVE: Patient is conscious alert oriented X3 BMI 27 Head and neck examination PERRLA no masses no cervical lymphadenopathy no jaundice Cardiac examination audible S1-S2 no murmurs no gallops no arrhythmias Chest is clear bilateral,abscence of Rhonchi or wheezes,no surgical emphysema Abdomen nontender nondistended soft no organomegaly guarding or rigidity/no signs of peritonitis Right perianal ulcer measures about 4 x 5 cm with exposed underlying fat, examination is limited as patient have some discomfort. Data Micro: Micro: Microbiology 09/30/19 13:25 Blood Culture - Pr eliminary Blood NEGATIVE TO ANNE E 09/30/19 13:24 Blood Culture - Pr eliminary Blood NEGATIVE TO ANNE E A&P Assessment and plan (1) Ulcer of perianal area with fat layer exposed: After a limited history physical examination and reviewing the chart, I do recommend to obtain a CT scan of the abdomen and pelvis to include the concerning place on the perianal area. (I did review the CT scan images with my personal interpretation and there was no obvious masses or fistula) My clinical concern is likely that the patient has a perianal fistula but the ulcer is also concerning for a potential neoplastic change. In order for me to have a better evaluation patient likely will benefit from a colonoscopy or at least a flex sigmoidoscopy with examination under anesthesia which can be done as an outpatient. Thank you for consulting General surgery to partcipate in taking care of Mr Reyes. Status: Resolved Consult Attestations Medical Necessity Statement: Per hospitalist Time Spent in Patient Care: 16 - 35 minutes (>than 50% of time spent in counselling and/or direct pt care on unit). Coding Level of Care Code Acute Mortgage Loan Officer Originator for Carolina Mccordd Diagnoses Ulcer of perianal area with fat layer exposed L98.492
--- NOTE | 2019-10-02 15:10 | P.PN_ITS ---
Subjective Subjective: Interval history: This morning he became quite fatigued when trying to walk back from the restroom to his bed. Got to the point he was dizzy, despite having his nasal cannula on. Temporarily BiPAP was replaced. He has been really wanting to return home, however, discussed with him with significant deconditioning, chronic respiratory failure with chronic hypoxia requiring 3.5-4 L of oxygen, and currently with exacerbation of COPD, as well as physical deconditioning we would be well served with obtaining a PT evaluation, and potentially even consider placement to SNF prior to return home so he may undergo rehabilitation. He states will consider this plan, and for now is agreeable to stay for additional evaluation. This morning also noted to have a serosanguineous stain on the sheets after getting up to the restroom, and has stated that he on and off for the last 40 years has had a wound reopening on his sacrum, most of the time it opens only for couple days, and then stops draining. He says that the initial wound was about 40 years ago after falling off a roof across some shingles, and onto a saw horse. At that time he was assessed for the wound, although has not followed with anybody in about 30 years. Vitals/I&O/Wt Last Vital Signs Temp 97.6 F 10/02/19 10:41 Pulse 102 H 10/02/19 12:43 Resp 18 10/02/19 12:42 BP 123/66 10/02/19 10:00 Pulse Ox 95 10/02/19 12:42 10/02/19 10/02/19 10/02/19 06:59 14:59 22:59 Intake Total 360 / 360 Output Total 600 / 1100 Balance -600 / 50 360 / 360 Physical Exam Const: COMMON NORMALS: no acute distress and patient oriented x3 HENMT: COMMON NORMALS: oropharynx normal Neck/C-Spine: COMMON NORMALS: no JVD Resp: COMMON NORMALS: normal respiratory effort AUSCULTATION: diminished lung sounds (Better than yesterday) Cardio: COMMON NORMALS: no JVD, regular rhythm, S1 normal heart sound present, S2 normal heart sound present and No murmurs present (Cardio) RHYTHM: regular rhythm HEART SOUNDS: S1 normal heart sound present and S2 normal heart sound present GI: COMMON NORMALS: Normal to inspection, nondistended, normoactive bowel sounds present, Soft to palpation and non-tender PALPATION: Yes Soft to palpation Back/Pelvis: OTHER: intergluteal cleft 3cm ulceration/laceration with a fat globules protruding through the wound, with some mild degree of induration, minimal surrounding erythema, small amount of serosanguineous drainage Extremity: COMMON NORMALS: no joint enlargement and no pedal edema OTHER: No symptoms of restless legs today Neuro: COMMON NORMALS: patient oriented x3 and moves all extremities Skin: COMMON NORMALS: no rashes or lesions noted GENERAL SKIN EXAM: no rashes or lesions noted Data : 10/02/19 05:00 10/02/19 05:00 Micro: Microbiology 09/30/19 13:25 Blood Culture - Preliminary Blood NEGATIVE TO DATE 09/30/19 13:24 Blood Culture - Preliminary Blood NEGATIVE TO DATE A&P Assessment and plan (1) Respiratory failure: This has been slowly improving. His exam today is better, with resolution of wheezing, with improvement in air entry. He does get very easily fatigable, got very winded, and even dizzy when trying to walk back from the restroom despite having nasal cannula on. Appears he has still ongoing symptoms, as well as a high degree of deconditioning from the acute illness and hospitalization. He had recovered after short duration BiPAP, and has since been on his baseline oxygen flow. Still, with how deconditioned he is we requested PT assessment, and discussed with him even consideration that he should probably go to SNF first prior to returning home after some rehabilitation. He agreed to consider this option. Given still some temporary BiPAP support need, will for now continue inpatient care, as well as discharge arrangements. We will also request for overnight pulse oximetry for consideration of home BiPAP. Home oxygen requirement states is 3.5-4 L by nasal cannula. Cont PO steroid, antibiotic breathing treatments. COVID-19 results negative. Status: Acute (2) Acute exacerbation of chronic obstructive airways disease: As above. Continue breathing treatments. Pulmonary toilet. Appreciate discharge planning assistance with arrangements for service or replacement of his nebulizer. Status: Acute (3) Ulcer of perianal area with fat layer exposed: About several CM in size with some minimal induration, min erythema, min serosang drainage. CT AP ordered also with PO contrast due to concern of possible fistula. Appreciate surgery discussion with regards to also follow up for additional assessment for this potentially with endoscopy. Status: Acute Additional A&P Information Restless leg syndrome: Tramadol, gabapentin. Anemia: Pending fecal occult blood test. Continue Protonix. Elevated troponin: Suspected type II NV, demand ischemia Elevated BNP: Does not appear to be in failure History anxiety/depression, continue Celexa History of HTN History of GERD DJD Chronic pain BPH: Reportedly chronic Cruz catheter over the last 5-6 months. UA not suggestive of UTI. States that his catheter was initially placed after he started having difficulty urination after running out of tamsulosin prescription. He says that since then the catheter just remained in place, being exchanged on a monthly basis. Discussed with him we would restart him on tamsulosin, and in 1-2 weeks he should be able to follow-up with urology for consideration of voiding trial and liberation from Cruz. Attestations Medical Necessity Statement*: Continue admission for assessment and management of acute on chronic respiratory failure. Assessment of sacral wound, and di scharge arrangements. Coding Level of Care Code Acute Corporate Legal Secretary for Carolina Lutz Diagnoses Respiratory failure J96.90 Acute exacerbation of chronic obstructive airways disease J44.1 Ulcer of perianal area with fat layer exposed L98.492
[2019-10-02] MEDS: iohexol 300 mg/mL 100 mL Btl IV (17:15)
[2019-10-02] MEDS: enoxaparin 40 mg/0.4 mL Syringe SUBCUT (18:07)
[2019-10-02] MEDS: TRAMadol 50 mg Tablet PO (18:09)
[2019-10-02] MEDS: fixodent 39 gm Tube 1 APPLIC DENTAL (18:11)
--- NOTE | 2019-10-02 18:46 | PC.NURSE ---
PT DRESSING CHANGE WHEN ARRIVED ON FLOOR AT APPROXIMATELY 1830, DONE WITH HERMILA BYRNE FROM ICU, MEASUREMENTS ARE 1.5 CM X 0.8CM, CLEANSED WITH STERILE WATER AND COVERED WITH ABD. PT TOLERATED WELL.
--- NOTE | 2019-10-02 19:40 | PC.NURSE ---
transfer report called to Lisa. Patient taken via bed, wound cleansed and dressed at bedside with accepting nurse. Explained that patient reports he has has this wound on and off for 40 years and has been open this time for approximately one month.
[2019-10-03] VITALS (11 sets, daily range): BP systolic 132–145; BP diastolic 48–62; PULSE 68–85; RESP 17–24; TEMP 36.5–36.8; O2SAT 88–99
[2019-10-03 05:09] LABS: Basophils % 0.1 %; Hematocrit 33.2 % (42.0-52.0); Lymphocytes # 0.9 10^3/uL (0.8-4.8); Lymphocytes % 12.6 %; Mean Corpuscular HGB Conc 30.1 g/dL (30.0-36.0); Mean Corpuscular Hemoglobin 27.3 pg (28.0-34.0); Mean Corpuscular Volume 90.7 fL (80-94); Mean Platelet Volume 9.5 fL (7.4-10.4); Monocytes # 0.6 10^3/uL (0.2-0.9); Neutrophils # 5.5 10^3/uL (1.8-7.7); Neutrophils % 78.4 %; Nucleated Red Blood Cells % 0 %; Platelet Count 404 10^3/cmm (130-400); Red Blood Count 3.66 10^6/uL (4.1-5.3); Red Cell Distribution Width 12.8 % (12.1-15.1)
[2019-10-03 05:29] LABS: Anion Gap 12.5 (5-19); Blood Urea Nitrogen 31 mg/dL (8-23); Calcium 9.9 mg/dL (8.5-10.5); Carbon Dioxide 34 mmol/L (22-29); Chloride 97 mmol/L (98-107); Glucose 92 mg/dL (65-115); Osmolality Calculated 285 mOsm/kg (285-295); Potassium 4.5 mmol/L (3.5-5.1); Sodium 139 mmol/L (136-145)
[2019-10-03] MEDS: predniSONE 20 mg Tablet 40 MG PO (08:04)
[2019-10-03] MEDS: doxycycline 100 mg Tablet PO (08:04)
[2019-10-03] MEDS: pantoprazole DR 40 mg Tablet PO (08:05)
[2019-10-03] MEDS: citalopram 20 mg Tablet 10 MG PO (08:05)
[2019-10-03] MEDS: gabapentin 300 mg Capsule PO (08:05)
--- NOTE | 2019-10-03 13:34 | PM.DCS ---
Discharge Providers Date of Admission: 09/30/19 15:28 Date of Discharge: October 03, 2019 Attending Provider at Admission: Alessia Valadez MD Attending Provider at Discharge: Chalino Almendarez Diagnoses at Discharge Discharge Diagnosis (1) Respiratory failure: Status: Acute (2) Acute exacerbation of chronic obstructive airways disease: Status: Acute (3) Ulcer of perianal area with fat layer exposed: Status: Acute (4) Anemia: Status: Acute (5) Chronic indwelling Cruz catheter: Status: Acute (6) BPH (benign prostatic hyperplasia): Status: Acute Reason for Visit Reason for Visit: Reason For Visit: SOB Hospital Course Hospital Course: Pleasant gentleman with chronic respiratory failure, chronic hypoxia, at home previously had been on 2 L of oxygen by nasal cannula at night, COPD, smoking addiction, was admitted after he presented with shortness of breath, found to be in acute exacerbation of COPD, requiring BiPAP support, although not normally on BiPAP at home, started on IV steroid initially, then transition to oral treatment with prednisone, doxycycline for severe exacerbation, was treated with inhalers initially with Combivent while being tested for COVID-19. This was negative. His symptoms gradually improved. His oxygenation remained stable, although he continually requires oxygen during the day at this time. He overall is pleasant, responsive, somewhat hard of hearing, but it is difficult to tell how much of a grasp he has on his condition. He does try to state that his nebulizer has not been working at home, however, could not call it by name, describing it by gesturing. He also appears to have a chronic Cruz for the last 5-6 months which on questioning him states that it was placed and left in place after he ran out of Flomax prescription. On discharge he is given a prescription of Flomax, request is made that he be supplied with a leg bag, and for now maintain Cruz catheter for the next 1-2 weeks with subsequent follow-up with urology in office for weaning trial. While in the hospital also discovered to have an open wound slightly to the right of the superior gluteal cleft, with mild serosanguineous drainage, with globule of fat protruding, very mild surrounding induration, erythema, which on closer questioning he states has been coming back on and off for the last 40 years after he sustained a fall from a roof top hitting multiple rafters on the way, and then landing on his sawhorse. He says that most of the time it will open up for several days, and then reclosed. He says he has not seen anybody for it in about 30 years. He was assessed by CT abdomen pelvis to rule out abscess, and also due to concern for possible fistula given chronicity of the lesion. Currently says the wound has been open for several weeks. He was given instructions on preventing worsening/recurrence of the lesion, and wound care. He was assessed by surgery, who will also see him on outpatient side for additional evaluation to exclude fistulization. While in the hospital also noted to be anemic, although stool studies for immunochemical testing could not be obtained. Has had no outward bleeding. Was maintained on Protonix while taking prednisone, and hemoglobin remained stable. Please follow-up level, as well as additional outpatient work-up as needed with regards to this. Given his deconditioning, some ongoing hypoxia, as well as somewhat incomplete grasp of his medical conditions, arrangements were made, and multiple discussions had with regards to placement to long-term facility to allow for additional supervised recovery and rehabilitation, however, he is adamantly declining to discharge to long-term facility, insistent that he is going to leave the hospital today and return home. Due to this home health care is requested, and he has agreed with this. He states there will be someone with him there at all times. Please follow-up on the above as well as his chronic conditions. He is also encouraged to stop smoking, please continue to encourage and support cessation. Physical Exam Const: COMMON NORMALS: no acute distress and patient oriented x3 HENMT: COMMON NORMALS: oropharynx normal Neck/C-Spine: COMMON NORMALS: no JVD Resp: COMMON NORMALS: normal respiratory effort AUSCULTATION: diminished lung sounds (Better than yesterday) Cardio: COMMON NORMALS: no JVD, regular rhythm, S1 normal heart sound present, S2 normal heart sound present and No murmurs present (Cardio) RHYTHM: regular rhythm HEART SOUNDS: S1 normal heart sound present and S2 normal heart sound present GI: COMMON NORMALS: Normal to inspection, nondistended, normoactive bowel sounds present, Soft to palpation and non-tender PALPATION: Yes Soft to palpation Back/Pelvis: OTHER: intergluteal cleft 3cm ulceration/laceration with a fat globules protruding through the wound, with some mild degree of induration, minimal surrounding erythema, small amount of serosanguineous drainage Extremity: COMMON NORMALS: no joint enlargement and no pedal edema OTHER: No symptoms of restless legs today Neuro: COMMON NORMALS: patient oriented x3 and moves all extremities Skin: COMMON NORMALS: no rashes or lesions noted GENERAL SKIN EXAM: no rashes or lesions noted Discharge Data Data Completed and Pending: Completed Studies During Hospitalization Category Date Time Status CT abdomen pelvis w con* [id number] Rout ine Cat Scan 10/02/19 11:30 Completed XR chest 1V aaron ble [id number] Urgent Exams 09/30/19 13:12 Completed Pending at discharge Category Date Time Status Basic Metabolic P andrea AM LABS Lab 10/04/19 04:00 Ordered Blood Culture Sta t Lab 09/30/19 13:25 Results Complete Blood Co unt w/Auto AM LABS Lab 10/04/19 04:00 Ordered Immunochemical Fe myles OCB Routine Lab 09/30/19 17:49 Uncollected Sputum Culture an d Gram Stain Stat Lab 09/30/19 13:12 Uncollected Urine Culture Sta t Lab 09/30/19 13:16 Results Labs from last 24 hours 10/03/19 10/03/19 04:39 04:39 WBC 7.0 RBC 3.66 L Hgb 10.0 L Hct 33.2 L MCV 90.7 MCH 27.3 L MCHC 30.1 RDW 12.8 Plt Count 404 H MPV 9.5 Neut % (Auto) 78.4 Lymph % (Auto) 12.6 Cavalier % (Auto) 8.0 Eos % (Auto) 0.0 Baso % (Auto) 0.1 Neut # (Auto) 5.5 Lymph # (Auto) 0.9 Cavalier # (Auto) 0.6 Eos # (Auto) 0.0 Baso # (Auto) 0.0 Nucleated RBC % (a uto) 0 Nucleated RBCs # 0.0 Sodium 139 Potassium 4.5 Chloride 97 L Carbon Dioxide 34 H Anion Gap 12.5 BUN 31 H Creatinine 1.1 Glucose 92 Calculated Osmolal ity 285 Calcium 9.9 Vitals: Last Vital Signs Temp 97.7 F 10/03/19 11:18 Pulse 85 10/03/19 11:18 Resp 19 H 10/03/19 11:18 BP 144/62 10/03/19 11:18 Pulse Ox 97 10/03/19 11:18 Discharge Plan Discharge Patient Disposition: Home Health Service Condition: Fair Prescriptions: New doxycycline monohydrate 100 mg Tablet 100 mg PO BID 7 Days Qty: 14 RF: 0 Combivent Respimat 20-100 mcg/actuation Mist 1 puff inhalation Q6H PRN (Reason: Shortness Of Breath Or Wheezing) Qty: 4 RF: 0 prednisone 20 mg Tablet 40 mg PO DAILY Qty: 21 RF: 0 pantoprazole 40 mg Tablet,Delayed Release (Dr/Ec) 40 mg PO DAILY Qty: 30 RF: 0 Flomax 0.4 mg capsule 0.4 mg PO DAILY Qty: 30 RF: 0 Continued ipratropium-albuterol 0.5 mg-3 mg(2.5 mg base)/3 mL solution for nebulization 3 ml INHALATION TID RF: 0 citalopram 10 mg tablet 10 mg PO DAILY RF: 0 meloxicam 15 mg tablet 15 mg PO DAILY PRN (Reason: unknown) RF: 0 alprazolam 0.5 mg tablet 0.5 mg PO Q4H PRN (Reason: Anxiety) RF: 0 docusate sodium [DOK] 100 mg capsule 100 mg PO BID RF: 0 guaifenesin [Mucinex] 600 mg tablet extended release 12hr 600 mg PO BID RF: 0 gabapentin 300 mg capsule 300 mg PO BID RF: 0 Mucinex 600 mg PO BID RF: 0 tramadol 50 mg PO Q4-5H PRN (Reason: leg restlessness) RF: 0 Discontinued gabapentin 300 mg capsule See Rx Instructions .ROUTE .COMPLEX RF: 0 doxycycline hyclate [Vibramycin] 100 mg capsule 100 mg PO BID RF: 0 gabapentin 300 mg capsule 300 mg PO BID RF: 0 ciprofloxacin HCl 500 mg tablet RF: 0 Discharge Orders: Discharge Order (Routine); Ordered 10/03/19 Ordered By: Chalino Almendarez Other Ambulatory Orders: DME: Nebulizer with Neb Kit (Order) Location: None Selected Ordered By: Chalino Almendarez Referrals: [facility] [Outside] [facility] [Outside] [facility] [Outside] Dominic Palomares MD [Physician] - 1 week (sacral wound You have a follow up appointment with [facility] surgial specialist Dr. Palomares on October 09 at 3:30pm.) YOLANDA Waterman, SOFTWARE DEVELOPMENT COORDINATOR [Nurse Practitioner] - 4-7 days (You have a hospital follow up appointment with YOLANDA on TuesdayOctober 09 at 10:00am.) Isma Hoyt MD [Physician] - 1 week (Cruz last 6 mo after ran out of Flomax, BPH, voiding trial. Dr. Dwyer office will call you at home for a follow up appointment from hospital.) Discharge Diet: Cardiac Discharge Activity: Increase activity as tolerated, As per PT/OT instructions and Oxygen as instructed Patient Instructions: Doxycycline (By mouth), Prednisone (By mouth), Tamsulosin (By mouth), Ipratropium/Albuterol (By breathing), Pantoprazole (By mouth), Benign Prostatic Hypertrophy (DC), Metabolic Acidosis (GEN) Activity Restrictions/Additional Instructions: Sitz bath's 3-4 times a day using warm water mixed with Epsom salt Cover sacrum wound with hydrofera blue dressing. Reposition frequently, avoid staying seated in one place longer than 30 minutes to an hour. Ideally use doughnut for sitting. For now maintain Cruz catheter in place until Flosher has a chance to start working and can be seen in urology clinic for voiding trial and removal. Please stop smoking. Please never smoke anywhere near oxygen due to severe fire hazard and risk of colon. Continue oxygen at home as recommended by home evaluation on discharge, during the day and at night. Discussed with your primary care doctor to follow-up your blood count due to anemia. Strict fall precautions. Please have somebody from her family be available for help during the day. Discharge Attestations Time Spent in Discharge Care*: greater than 30 min Quality Metrics Clinical Quality Measures During this hospital stay, did patient experience: None Coding Level of Care Code Acute Product Safety Manager for [place] Fwd Exam Comprehensive Diagnoses Respiratory failure J96.90 Acute exacerbation of chronic obstructive airways disease J44.1 Ulcer of perianal area with fat layer exposed L98.492 Anemia D64.9 Chronic indwelling Cruz catheter Z96.0 BPH (benign prostatic hyperplasia) N40.0
== END 2019-10-03 16:09 | disposition home health service (06) | DRG 190 ==
LOC: ER 14:53 → ICU 16:42 → MEDSURG 10-02 18:34
PROVIDERS: Family Medicine; Internal Medicine; Admitting Provider Family Medicine; Visit Provider Internal Medicine
DX: J44.1 Chronic obstructive pulmonary disease with (acute) exacerbation (principal); J96.92 Respiratory failure, unspecified with hypercapnia; I21.A1 Myocardial infarction type 2; D64.9 Anemia, unspecified; L98.492 Non-pressure chronic ulcer of skin of other sites with fat layer exposed; N40.0 Benign prostatic hyperplasia without lower urinary tract symptoms; Z96.0 Presence of urogenital implants; Z99.81 Dependence on supplemental oxygen; F17.210 Nicotine dependence, cigarettes, uncomplicated; Z20.828 Contact with and (suspected) exposure to other viral communicable diseases; G89.29 Other chronic pain; I10 Essential (primary) hypertension; K21.9 Gastro-esophageal reflux disease without esophagitis; M19.90 Unspecified osteoarthritis, unspecified site; F41.8 Other specified anxiety disorders
CPT/HCPCS: 12345; 36415; 36600; 71045; 74177; 80048; 80053; 81001; 82607; 82728; 82746; 82803; 83540; 83550; 83605; 83880; 84443; 84484; 85025; 87040; 87077; 87086; 87186; 87635; 87804; 93005; 94640; 94660; 96372; 96375; 97161; 97530; 99282; J1650; J2270; J3535; J7040; J7512; Q9967